=== PATIENT | male | born 1960 | race Caucasian/White ===

== ENCOUNTER 2018-06-30 14:47 | Emergency (ER) | payer MEDICAID, OTHER | END 2018-06-30 17:05 | disposition home or self-care (01) | LOC: FTE 14:47 | DX: S61.210A Laceration without foreign body of right index finger without damage to nail, initial encounter (principal); W26.8XXA Contact with other sharp object(s), not elsewhere classified, initial encounter; Y92.9 Unspecified place or not applicable; Z85.528 Personal history of other malignant neoplasm of kidney | CPT/HCPCS: 12001; 99283-25 ==

== ENCOUNTER 2019-01-02 23:40 | Emergency (ER) | payer MEDICAID ==
[2019-01-03] MEDS: DEXAMETHASONE 10 MG/ML 1 ML INJ IM (03:27)
[2019-01-03] MEDS: KETOROLAC 30 MG INJ IM (03:27)
== END 2019-01-03 04:19 | disposition home or self-care (01) ==
LOC: FTE 23:40
DX: M25.561 Pain in right knee (principal); M25.562 Pain in left knee; G89.29 Other chronic pain; Z85.528 Personal history of other malignant neoplasm of kidney
CPT/HCPCS: 96372; 99284-25

== ENCOUNTER 2019-01-21 05:27 | Emergency (ER) | payer MEDICAID ==
[2019-01-21] MEDS: KETOROLAC 30 MG INJ IM (06:32)
[2019-01-21] MEDS: DEXAMETHASONE 10 MG/ML 1 ML INJ IM (06:32)
== END 2019-01-21 06:42 | disposition home or self-care (01) ==
LOC: FTE 05:27
DX: M24.561 Contracture, right knee (principal); M24.562 Contracture, left knee; Z85.528 Personal history of other malignant neoplasm of kidney
CPT/HCPCS: 96372; 99284-25